=== PATIENT | male | born 1970 | race Hispanic/Latino ===

== ENCOUNTER → 2024-06-06 | Outpatient (CLI) | payer MEDICARE ==
--- NOTE | 2024-06-09 10:11 | HMCSR ---
APPROVED REPORT EXAM: Two-dimensional and M-mode echocardiogram with Doppler and color Doppler. INDICATION 2D Dimensions RVDd4.5 cmLVEF(%)57.0 (>50%)LVED Vol(simp.)149.0 mL IVSd1.1 (0.7-1.1cm)FS(%)30 %LVES Vol(simp.)60.0 mL LVDd5.5 (3.8-5.6cm)Ao Root(2D)3.9 (2.0-3.7cm)LVEF(%, simp.)59 % PWd1.2 (0.7-1.1cm)LVOT diam2.3 (1.8-2.4cm)LA ESV INDEX (BP)37.20 mL/m2 LVDs3.8 (2.5-4.0cm)IVC diam1.3 cm Aortic Valve AoV Vmax1.6 m/Yary Peak GR9.8 mmHgLVOT Vmax1.2 m/s AoV VTI0.3 mAo Mean GR5.5 mmHgLVOT VTI0.24 m AIYANA (VMAX)3.3 cm2Al P1/2T685 msAVA (VTI) 3.3 cm2 Mitral Valve MV E Vmax89.4 cm/sDECEL Ldne047 ms MV A Vmax68.1 cm/sP 1/2 T71 ms E/A ratio1.3MVA (PHT)3.1 cm2 MR Max PG53 mmHg TDI E/E' Bcamhr25.5E/E' Lateral9.3 Pulmonary Valve PV Vmax1.0 m/sPV VTI0.22 mPV Mean GR2 mmHg PV Peak GR4.2 mmHg Tricuspid Valve RAP (EST) 3 mmHg Left Ventricle The left ventricle structure and function is normal. There is mild left ventricular hypertrophy. LVEF is 55-60%. Left ventricular filling pattern is normal for age. Right Ventricle The right ventricle is mildly to moderately dilated. The right ventricular systolic function is mike l. Atria The left atrium is mildly dilated. The right atrium is borderline dilated. Aortic Valve Aortic valve is trileaflet. Aortic valve leaflets are sclerotic but open well. Trace aortic regurgita tion. There is no aortic valvular stenosis. Mitral Valve Mitral valve leaflets appear normal. Mitral regurgitation is trace. There is no mitral valve stenosis . Tricuspid Valve The tricuspid valve leaflets appear normal. There is trace tricuspid regurgitation. Pulmonic Valve The pulmonic valve leaflets are thin and pliable; valve motion is normal. There is trace pulmonic marge vular regurgitation. Great Vessels The aortic root is normal in size. The IVC is normal in size and collapses >50% with inspiration. Pericardium No pericardial effusion. Conclusion The left ventricle structure and function is normal. There is mild left ventricular hypertrophy. LVEF is 55-60%. Left ventricular filling pattern is normal for age. The right ventricle is mildly to moderately dilated. The right ventricular systolic function is normal. The left atrium is mildly dilated. The right atrium is borderline dilated. Trace aortic regurgitation. Mitral regurgitation is trace. No pericardial effusion.
== END | disposition home or self-care (01) ==
LOC: SHCH 16:33
PROVIDERS: ATTEND Student in an Organized Health Care Education/Training Program
DX: I87.2 Venous insufficiency (chronic) (peripheral) (principal); R42 Dizziness and giddiness
CPT/HCPCS: 93306